=== PATIENT | male | born 1970 | race Caucasian/White ===

== ENCOUNTER 2017-06-30 15:36 | Emergency (ER) | payer OTHER ==
[~2017-06-30] VITALS: Ht 175.3 cm; Wt 89.5 kg
[2017-06-30 15:40] VITALS: Ht 175.3 cm; Wt 89.5 kg
[2017-06-30] MEDS ORDERED: ACETAMINOPHEN 500 MG TAB PO STA (15:48)
--- NOTE | 2017-06-30 16:55 | DIAGNOSTIC IMAGING REPORT ---
HEAD WITHOUT CONTRAST (CT) CT DOSE: 805.40 mGy.cm HISTORY: Trauma fall TECHNIQUE: Multiaxial CT images of the head were performed without the use of intravenous contrast. A dose lowering technique was utilized adhering to the principles of ALARA. Comparison: None. Findings: The paranasal sinuses and mastoid air cells are clear. The calvarium and skull base are intact. The ventricles and sulci are within normal limits. There is no mass, hematoma, midline shift, or acute infarct. Impression: No acute intracranial abnormality. The above report was generated using voice recognition software. It may contain grammatical, syntax or spelling errors. Electronically signed by: Yair Fuller M.D. 06/30/2017 4:54 PM Dictated Date/Time: 06/30/2017 4:53 PM
--- NOTE | 2017-06-30 16:58 | DIAGNOSTIC IMAGING REPORT ---
CERVICAL SPINE W/O CT DOSE: HISTORY: Trauma fall TECHNIQUE: Multiaxial CT images of the cervical spine were performed and reformatted in the sagittal and coronal plane without the use of contrast. A dose lowering technique was utilized adhering to the principles of ALARA. COMPARISON: None. FINDINGS: Old avulsions of the spinous process of C7 and T1. Margins are well corticated. Reversal of the normal cervical curvature consistent with muscular spasm. Degenerative intervertebral disc change C5-C6. No acute compression deformity. C1-C2 complex is intact. IMPRESSION: No fractures within the cervical spine. Moderate degenerative change. Muscle spasm. The above report was generated using voice recognition software. It may contain grammatical, syntax or spelling errors. Electronically signed by: Yair Fuller M.D. 06/30/2017 4:56 PM Dictated Date/Time: 06/30/2017 4:54 PM
[2017-06-30] MEDS ORDERED: METO25TA56 PO (17:04)
[2017-06-30] MEDS ORDERED: ACYC400T PO (17:04)
[2017-06-30] MEDS ORDERED: MELO7.5T5 PO (17:04)
[2017-06-30] MEDS ORDERED: ATOR-22 PO (17:04)
[2017-06-30] MEDS ORDERED: LISI-729 PO (17:04)
[2017-06-30] MEDS ORDERED: ASPI325T45 PO (17:04)
--- NOTE | 2017-06-30 17:09 | EMERGENCY ROOM VISIT NOTE ---
History Report prepared by Neto: Beth Ag Under the Supervision of: Dr. Jam Bhakta D.O. First contact with patient: 15:42 Chief Complaint: NECK PAIN Stated Complaint: NECK & HEAD PAIN History of Present Illness The patient is a 47 year old male who presents to the Emergency Room with complaints of resolved neck pain starting 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 The patient presents to the ED by EMS from long term. He was playing ball outside when he collided with another player. His face went into the other player's face. He complained of neck pain afterwards, so was immobilized and brought to the ED. He did have some epistaxis which resolved. He does not have any complaints at this time. He denies any leg pain, abdominal pain, chest pain, or back pain. He denies any LOC. He is on lisinopril and aspirin. 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 Review of Systems See HPI for pertinent positives & negatives. A total of 10 systems reviewed and were otherwise negative. Past Medical & Surgical Medical Problems: (1) Hypertension Family History No pertinent family history stated. Social History Housing Status: other (long term) Current/Historical Medications Scheduled Acyclovir (Acyclovir), 400 MG PO TID Aspirin (Aspirin), 325 MG PO DAILY Atorvastatin (Lipitor), 20 MG PO HS Lisinopril (Prinivil), 5 MG PO DAILY Metoprolol Tartrate (Lopressor) (Lopressor), 25 MG PO BID Scheduled PRN Meloxicam (Mobic), 7.5 MG PO DAILY PRN for Pain Allergies Uncoded Allergies: OLEORESIN CAPSICUM (Allergy, Unknown, Unknown, 06/30/17) Listed on JAN Physical Exam Vital Signs Date Time Temp Pulse Resp B/P (MAP) Pulse Ox O2 Delivery O2 Flow Rate FiO2 06/30/17 17:35 36.8 67 18 138/87 95 06/30/17 17:33 67 18 138/87 95 Room Air 06/30/17 15:40 36.8 70 18 142/81 95 Room Air Physical Exam GENERAL: Patient is awake, alert, non anxious appearing, immobilized with cervical collar and long spine board [employer]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 EYES: The conjunctivae are clear. The pupils are round and reactive. EARS, NOSE, MOUTH AND THROAT: Clotted blood in the right naris, but no active bleeding. 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 RESPIRATORY: Normal respiratory effort is noted there is no evidence of wheezing rhonchi or rales CARDIOVASCULAR: Regular rate and rhythm noted there no murmurs rubs or gallops normal S1 normal S2 GASTROINTESTINAL: The abdomen is soft. Bowel sounds are present in all quadrants. Abdomen is nontender BACK: No midline tenderness or or step-off noted range of motion in flexion extension as well as rotation no signs of muscle spasm noted MUSCULOSKELETAL/EXTREMITIES: There is no evidence of gross deformity full range of motion is noted in the hips and shoulders SKIN: There is no obvious evidence of any rash. There are no petechiae, pallor or cyanosis noted. NEUROLOGIC: Patient is awake alert and oriented x3 strength is symmetric patellar reflexes are 2+ bilaterally Medical Decision & Procedures ER Provider Diagnostic Interpretation: Radiology results as stated below per my review and radiologist interpretation: CERVICAL SPINE W/O CT DOSE: HISTORY: Trauma fall TECHNIQUE: Multiaxial CT images of the cervical spine were performed and reformatted in the sagittal and coronal plane without the use of contrast. A dose lowering technique was utilized adhering to the principles of ALARA. COMPARISON: None. FINDINGS: Old avulsions of the spinous process of C7 and T1. Margins are well corticated. Reversal of the normal cervical curvature consistent with muscular spasm. Degenerative intervertebral disc change C5-C6. No acute compression deformity. C1-C2 complex is intact. IMPRESSION: No fractures within the cervical spine. Moderate degenerative change. Muscle spasm. The above report was generated using voice recognition software. It may contain grammatical, syntax or spelling errors. Electronically signed by: Yair Fuller M.D. 06/30/2017 4:56 PM Dictated Date/Time: 06/30/2017 4:54 PM HEAD WITHOUT CONTRAST (CT) CT DOSE: 805.40 mGy.cm HISTORY: Trauma fall TECHNIQUE: Multiaxial CT images of the head were performed without the use of intravenous contrast. A dose lowering technique was utilized adhering to the principles of ALARA. Comparison: None. Findings: The paranasal sinuses and mastoid air cells are clear. The calvarium and skull base are intact. The ventricles and sulci are within normal limits. There is no mass, hematoma, midline shift, or acute infarct. Impression: No acute intracranial abnormality. The above report was generated using voice recognition software. It may contain grammatical, syntax or spelling errors. Electronically signed by: Yair Fuller M.D. 06/30/2017 4:54 PM Dictated Date/Time: 06/30/2017 4:53 PM Medications Administered Medications (Trade) Dose Ordered Sig/Maxine Route Start Time Stop Time Status Last Admin Dose Admin Acetaminophen (Tylenol Tab) 1,000 mg NOW STAT PO 06/30/17 15:48 06/30/17 15:50 DC 06/30/17 16:42 1,000 MG ED Course 1545: The patient was evaluated in room B6. A complete history and physical examination were performed. 1548: Acetaminophen 1000 mg PO. 1708: Upon reevaluation, the patient is resting comfortably. I discussed the results and treatment plan with him. He verbalized agreement of the treatment plan. He was discharged to long term. Medical Decision Prior records/ancillary studies reviewed. Triage Nursing notes reviewed. The patient's history was concerning for traumatic injury Differential diagnosis: Etiologies such as fracture, dislocation, intra-abdominal, pneumothorax, intrathoracic , intracranial, neurologic, as well as other traumatic pathologies were entertained. The patient is a 47-year-old male who presented to the emergency department after an injury. The patient was playing recreational sports when he ran into some also. He had a hyperextension of his neck as well as a facial injury. The patient was treated with pain medication in the emergency department. I discussed the patient's radiographic studies with him. He was encouraged to continue all medications as prescribed and follow-up with his primary care physician for further evaluation. There were also encouraged to return the emergency apartment immediately if symptoms change worsen or the need arises. Head Trauma GCS Score: 15 Medication Reconcilliation Current Medication List: was personally reviewed by me Blood Pressure Screening Patient's blood pressure: Elevated blood pressure Blood pressure disposition: Elevated BP felt to be situational Impression Primary Impression: Head injury Additional Impressions: Cervical strain Facial contusion Scribe Attestation The scribe's documentation has been prepared under my direction and personally reviewed by me in its entirety. I confirm that the note above accurately reflects all work, treatment, procedures, and medical decision making performed by me. Departure Information Dispostion Other (long term) Referrals Zeferino MANCINI (PCP) Forms HOME CARE DOCUMENTATION FORM, IMPORTANT VISIT INFORMATION, WORK / SCHOOL INSTRUCTIONS Patient Instructions ED Contusion Face, ED Head Injury Closed, My [facility] Additional Instructions Continue all medications as prescribed. Continue using Motrin and Tylenol as directed for pain. Problem Qualifiers Primary Impression: Head injury Encounter type: initial encounter Qualified Codes: S09.90XA - Unspecified injury of head, initial encounter Additional Impressions: Cervical strain Encounter type: initial encounter Qualified Codes: S16.1XXA - Strain of muscle, fascia and tendon at neck level, initial encounter Facial contusion Encounter type: initial encounter Qualified Codes: S00.83XA - Contusion of other part of head, initial encounter
[2017-06-30 17:35] VITALS: BP 138/87; PULSE 67; TEMP 36.8; O2SAT 95
== END 2017-06-30 17:36 | disposition home or self-care (01) ==
LOC: C.EDB 15:40
DX: S09.90XA Unspecified injury of head, initial encounter (principal); S16.1XXA Strain of muscle, fascia and tendon at neck level, initial encounter; S00.83XA Contusion of other part of head, initial encounter; W50.0XXA Accidental hit or strike by another person, initial encounter; I10 Essential (primary) hypertension; Z79.82 Long term (current) use of aspirin

== ENCOUNTER → 2017-08-27 | Outpatient (CLI) | payer OTHER ==
[~2017-08-27] MED LIST: ACYC400T PO; ASPI325T45 PO; ATOR-22 PO; LISI-729 PO; MELO7.5T5 PO; METO25TA56 PO; OPTIRAY 320 IV PRN
--- NOTE | 2017-08-27 12:30 | DIAGNOSTIC IMAGING REPORT ---
L ANGIOGRAPHY LOWER EXT COMBO HISTORY: 47 years-old Male patient presents with acutely decreased pulses of the left lower extremity. Initial exam. COMPARISON: None available. TECHNIQUE: CT jog in the left lower extremity was obtained both with and without the use of 119 mL Optiray 320. 3-D coronal and sagittal MIPS were also obtained and reviewed. Measurements were made according to NASCET criteria. A dose lowering technique was used consistent with the principals of CYRIL. FINDINGS: CTA: The noncontrast scan demonstrates mild atherosclerotic and atheromatous plaquing of the common femoral artery. No additional significant atherosclerotic plaquing. No intramural hematoma. Postcontrast images demonstrate patent left common femoral, profunda femoris, superficial femoral, popliteal, anterior tibial, tibioperoneal trunk, posterior tibial and peroneal arteries. Three-vessel flow is noted to the level of the ankle. No high-grade stenosis, aneurysm or proximal branch occlusion identified. No dissection or pseudoaneurysm. CT: Imaged intrapelvic structures demonstrate no acute abnormality. Calcifications are seen within the central prostate. There is a small fat filled left femoral hernia. Nonenlarged left inguinal adenopathy is likely physiologic. Note is made of a nonspecific 9 x 7 mm calcification of the left scrotum. The soft tissues of the left lower extremity appear unremarkable. Bones appear intact with a focal lucent partially sclerotic 2.2 x 0.8 cm lesion of the calcaneal body which may reflect a pseudolesion from prominent trabeculations. This can be a common place for a unicameral bone cyst or lipoma as well, however this is not have a typical appearance for either of those lesions. Bones appear intact without acute fracture or dislocation. IMPRESSION: 1. Mild mixed plaquing of the left common femoral artery without high-grade stenosis. There is three-vessel flow to the level of the ankle without significant vessel narrowing, occlusion, aneurysm or dissection. 2. Incidental note is made of a nonaggressive appearing lucent lesion with sclerotic margins of the calcaneus measuring up to 2.2 cm. 3. Nonspecific 9 mm calcification of the left hemiscrotum suggest scrotalith. 4. Small fat filled left femoral hernia. The above report was generated using voice recognition software. It may contain grammatical, syntax or spelling errors. Electronically signed by: Antwan Jones M.D. 08/27/2017 12:29 PM Dictated Date/Time: 08/27/2017 12:18 PM
== END | disposition home or self-care (01) ==
LOC: C.CTS 10:53
PROVIDERS: ATTEND Family Medicine
DX: M84.872 Other disorders of continuity of bone, left ankle and foot (principal); N50.9 Disorder of male genital organs, unspecified; K41.90 Unilateral femoral hernia, without obstruction or gangrene, not specified as recurrent

== ENCOUNTER → 2018-01-30 | Outpatient (CLI) | payer OTHER ==
--- NOTE | 2018-01-30 09:50 | DIAGNOSTIC IMAGING REPORT ---
HEAD WITHOUT CONTRAST (CT) CT DOSE: HISTORY: Pain LT [facility]NER CAMPUS PAIN,VISIONLOSS,HEADACHES TECHNIQUE: Multiaxial CT images of the head were performed without the use of intravenous contrast. A dose lowering technique was utilized adhering to the principles of ALARA. Comparison: None. Findings: Mucosal thickening of the mastoid air cells bilaterally. No evidence for bony destructive process. The calvarium and skull base are intact. The ventricles and sulci are within normal limits. There is no mass, hematoma, midline shift, or acute infarct. Impression: No acute intracranial abnormality. Significant mucosal Thickening of mastoid air cells bilaterally. The above report was generated using voice recognition software. It may contain grammatical, syntax or spelling errors. Electronically signed by: Yair Fuller M.D. 01/30/2018 9:49 AM Dictated Date/Time: 01/30/2018 9:42 AM
--- NOTE | 2018-01-30 09:51 | DIAGNOSTIC IMAGING REPORT ---
HEAD ANGIO WITH CONTRAST HISTORY: 47 years-old Male presents with acute headaches and vision loss COMPARISON: CT head of same day and also 06/30/2017 TECHNIQUE: CTA of the head was obtained following the intravenous administration of 92 mL Optiray 320 IV contrast. 3-D coronal and sagittal MIPS were obtained from the axial data set and submitted for review. All measurements were obtained according to NASCET criteria. A dose lowering technique was used consistent with the principals of CYRIL. FINDINGS: CT head portion of the study will be dictated separately. The imaged bilateral internal carotid arteries are widely patent. There is mild atherosclerotic plaquing involving the cavernous and clinoid portions of the internal carotid arteries bilaterally without high-grade narrowing. No proximal branch occlusion, aneurysm or dissection. The imaged bilateral middle and anterior cerebral arteries are widely patent and within normal limits. The anterior communicating artery also appears normal. Imaged bilateral vertebral arteries appear to be codominant and are widely patent. The basilar artery is patent and within normal limits. The bilateral posterior cerebral arteries appear to be within normal limits. The major cerebral venous sinuses appear patent and within normal limits. Large bilateral mastoid effusions with near complete opacification of the air cells. Right greater than left fluid within the middle ear cavities. Mild mucosal thickening of the inferior right maxillary sinus. Normal ethmoid sinus disease. No calvarial fracture. Soft tissues and orbits appear unremarkable. IMPRESSION: Mild atherosclerotic plaquing involves the cavernous and clinoid portions of the internal carotid arteries bilaterally without high-grade stenosis. No proximal branch occlusion, aneurysm or dissection identified. The above report was generated using voice recognition software. It may contain grammatical, syntax or spelling errors. Electronically signed by: Antwan Jones M.D. 01/30/2018 9:50 AM Dictated Date/Time: 01/30/2018 9:44 AM
== END | disposition home or self-care (01) ==
LOC: C.CTS 09:13
PROVIDERS: ATTEND Family Medicine
DX: H54.7 Unspecified visual loss (principal); R51 Headache